=== PATIENT | female | born 1970 | race Caucasian/White ===

== ENCOUNTER 2017-01-30 23:18 | Emergency (ER) | payer MEDICAID ==
[~2017-01-30] VITALS: Ht 157.5 cm; Wt 73.5 kg
[2017-01-30 23:20] VITALS: Ht 157.5 cm; Wt 73.5 kg
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
[2017-01-31] MEDS ORDERED: ACETAMINOPHEN 500 MG TAB PO STA (00:20)
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
[2017-01-31] MEDS ORDERED: TRAM50TA2 PO (01:02)
[2017-01-31] MEDS ORDERED: ACET500C5 PO (01:02)
== END 2017-01-31 01:10 | disposition home or self-care (01) ==
LOC: FTE 23:18
DX: S00.03XA Contusion of scalp, initial encounter (principal); S80.11XA Contusion of right lower leg, initial encounter; S60.221A Contusion of right hand, initial encounter; Y08.89XA Assault by other specified means, initial encounter
CPT/HCPCS: 70450; 73130; 73550; Z7502; Z7610